=== PATIENT | male | born 1950 | race Caucasian/White ===

== ENCOUNTER 2018-07-23 04:44 | Day surgery (SDC) | payer MEDICARE, OTHER ==
[2018-07-23] MEDS ORDERED: LACTATED RINGERS 1,000 ML IV ONE (05:31)
[2018-07-23] MEDS ORDERED: ceFAZolin SODIUM 1 GM VIAL ONE (08:48)
[2018-07-23] MEDS ORDERED: SEVOFLURANE 250 ML LIQUID IH ONE (08:48)
[2018-07-23] MEDS ORDERED: MIDAZOLAM HCL 2 MG/2 ML VIAL ONE (08:48)
[2018-07-23] MEDS ORDERED: LACTATED RINGERS 1,000 ML IV.SOLN IV ONE ×2 (08:48)
[2018-07-23] MEDS ORDERED: LIDOCAINE HCL 2% PF 100MG/5ML VIAL IJ ONE (08:48)
[2018-07-23] MEDS ORDERED: ESMOLOL HCL 100 MG/10 ML IV ONE (08:48)
[2018-07-23] MEDS ORDERED: PHENYLEPHRINE HCL 10 MG/1 ML ONE (08:48)
[2018-07-23] MEDS ORDERED: DEXAMETHASONE SODIUM PHOSPHATE 10 MG/ML VIAL ONE (08:48)
[2018-07-23] MEDS ORDERED: PROPOFOL 200 MG/20 ML VIAL IV ONE (08:48)
[2018-07-23] MEDS ORDERED: FENTANYL CITRATE/PF 250 MCG/5 ML INJ. ONE (08:48)
[2018-07-23] MEDS ORDERED: ROCURONIUM BROMIDE 10 MG/ML 5ML VIAL ONE (08:48)
[2018-07-23] MEDS ORDERED: ONDANSETRON HCL/PF 4 MG/ 2ML VIAL ONE (08:48)
--- NOTE | 2018-07-26 07:52 | Operative Note ---
PREOPERATIVE DIAGNOSIS: 1. Left-sided central and foraminal stenosis, L3-4. 2. Left-sided central and foraminal stenosis, L4-5. 3. Status post lumbar spine fusion, L5-S1. POSTOPERATIVE DIAGNOSIS: 1. Left-sided central and foraminal stenosis, L3-4. 2. Left-sided central and foraminal stenosis, L4-5. 3. Status post lumbar spine fusion, L5-S1. PROCEDURES PERFORMED: 1. Left-sided laminotomy with foraminotomy and partial facetectomy for spinal stenosis, L3-4. 2. Left-sided laminotomy with foraminotomy and partial facetectomy for spinal stenosis, L4-5. 3. Intraoperative fluoroscopy and interpretation for needle placement. 4. Lumbar epidural steroid injection. 5. Use of operating microscope and microsurgical technique. SURGEON: Julio Santoro Jr., M.D. [employer]UMBING FOREMAN: None. ANESTHESIA: General. COMPLICATIONS: None. CONDITION FOLLOWING THE PROCEDURE: Good. OPERATIVE FINDINGS: Mr. Butts has had significant left leg weakness, numbness, and pain due to MRI-identified spinal stenosis above his previous fusion. Having two levels of apparent severe stenosis and inability to distinguish which is the most symptomatic, we made a decision in conjunction with the patient and his family to simultaneously decompress both levels in hopes this will substantially improve his symptoms. This was carried out today with Cunningham probe identifying adequate spinal reserve capacity restored to the exiting nerve root neural foramen at L3-4 and L4-5. DESCRIPTION OF PROCEDURE: The patient is taken to the operating room and general anesthetic induced. The patient was placed in the prone position and the back was thoroughly scrubbed, sterilely prepped and draped. C-arm fluoroscopy was brought into position to identify the surgical level. A Tuohy needle was then placed adjacent to the paraspinous process of the lumbar spine and driven down to the base of the posterior spinous process. X-rays were taken to confirm vertical direction of the needle and identification of the L4-5 level for surgical care. When the Touhy needle was found to be placed and replaced in the ideal position, skin hoyt were made and the skin was infiltrated with 0.5% Marcaine with epinephrine. A 2-cm transverse incision was then made adjacent to the affected side of the lumbar spine at the affected level. The scalpel blade was then inserted through the subcutaneous tissue and, in a vertical direction, the lumbar fascia was incised through the transverse incision of the skin. Next, the smallest obturator for the cylindrical retractor set was inserted into the skin and through the division of the lumbar fascia down to the palpable inferior aspect of the lamina of the affected level. This was followed by progressive dilators and ended with a cylindrical retractor being placed down to the affected lamina. Its accurate placement was again confirmed radiographically by AP and lateral x-rays intraoperatively. The dilators were then removed, leaving the cylindrical retractor in place at the desired surgical level. High power magnification was then brought into the surgical field and utilized through the cylindrical retractor for the following microsurgical technique application and dissection. The thin muscular cuff remaining over the lamina was removed with a combination of pituitary rongeurs and electrocautery to control hemostasis. Typically, both monopolar and bipolar electrocautery are used for this purpose. The inferior aspect of the lamina then received a Redmond retractor and C-arm fluoroscopy was again brought into position to confirm medial placement and visualization of the lamina as well as to reconfirm the affected level is accurately identified for the surgical procedure to follow. Once this was confirmed, a high-speed chapincito was inserted and the posterior aspect of the lamina and base of the posterior spinous process began to be thinned down until just passing through the anterior aspect of the lamina, thus both visualizing and palpating the thick ligamentum flavum over the dural sac. There was deemed to be adequate exposure over the area affected for surgery and resection with the high-speed chapincito continued until well above the superior margin of the disc space. A combination of 2- and 3-mm Kerrison rongeurs were then used to remove the remaining thin wisp of anterior lamina and portions of the posterior spinous process until there was wide exposure in the desired area for surgical care. The ligamentum flavum was then freed from the superior margin which was identified by the initiation of bleeding, marking the origin of the ligamentum flavum superiorly. The ligamentum flavum was from the lamina at this point and reflected inferiorly. Kerrison rongeurs were then used to resect all of the ligamentum flavum, exposing the dural sac. Using the Kerrison rongeurs, the foraminotomy was performed on the surgical side until there was adequate room as demonstrated by passage of the Cunningham probe into the neural foramen. This required a resection of bony spicules, osteophytes, and hypertrophic ligamentum flavum within the spinal canal and neural foramen to confirm adequate relief of the exiting nerve root as well as the nerve root passing by the axilla, destined for next level emergence. A combination of bipolar electrocautery, Gelfoam and thrombin were used to control hemostasis as needed. Attention was directed in the opposite direction toward the opposite side of the spinal canal and ligamentum flavum was resected from the anterior aspect of the lamina on the opposite side to provide additional central decompression. At this point, thrombin was placed directly on the dura and allowed to remain for one minute, and then the excess removed. 40 mg of Depo- Medrol was then instilled over the dura and exposed nerve root. This was followed by a small piece of Gelfoam which covered the laminotomy site, which had been soaked in thrombin. The cylindrical tract was then gradually removed and any area of hemorrhage received electrocautery treatment. The lumbar fascia was then approximated with 0-Vicryl and a subcuticular closure of the subcutaneous and skin was then approximated with Steri-Strips. 15 cc of 0.5% Marcaine with epinephrine was then instilled into the muscular tissue and subcutaneous layer at all four quadrants of the incision to aid in postoperative analgesia. A dressing was applied and the patient was then taken to the recovery room in good condition. After this procedure was completed at the L4-5 level, the identical procedure from beginning to end was then carried out at the L3-4 level with the same result of identifying adequate spinal reserve capacity being conferred within the central canal and neural foramen by use of the Cunningham probe. JEWEL
== END 2018-07-23 12:15 | disposition home or self-care (01) ==
LOC: OPSURG 04:44
PROVIDERS: ATTEND Orthopaedic Surgery
DX: M48.062 Spinal stenosis, lumbar region with neurogenic claudication (principal); Z98.1 Arthrodesis status
CPT/HCPCS: 63030; 63035; J0690; J2001; J2250; J2370; J2405; J2704; J7120; J2307